=== PATIENT | female | born 1995 | race Caucasian/White ===

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

== ENCOUNTER 2018-04-24 13:18 | Outpatient (CLI) | END 2018-04-24 17:47 | disposition home or self-care (01) ==

== ENCOUNTER 2018-04-25 17:34 | Outpatient (CLI) | END 2018-04-25 20:40 | disposition home or self-care (01) ==

== ENCOUNTER 2018-06-04 18:13 | Inpatient (IN) | END 2018-06-06 15:05 | disposition home or self-care (01) | DRG 781 ==

== ENCOUNTER 2018-07-31 18:54 | Inpatient (IN) | END 2018-08-03 21:00 | disposition home or self-care (01) | DRG 788 ==

== ENCOUNTER 2019-04-30 16:46 | Emergency (ER) | payer OTHER ==
[~2019-04-30] VITALS: Ht 165.1 cm; Wt 68.2 kg
[~2019-04-30 16:46] MED LIST changes: +CEPH-443 PO; +PREN1TAB62 PO; -marajuana
[2019-04-30 17:01] VITALS: Ht 165.1 cm; Wt 68.2 kg
[2019-04-30] MEDS ORDERED: SOD CHLORIDE 0.9% 1,000 ML IV STA (17:21)
[2019-04-30 19:27] VITALS: BP 101/61; PULSE 69; RESP 20
== END 2019-04-30 19:28 | disposition home or self-care (01) ==
LOC: FTE 16:46
DX: O23.40 Unspecified infection of urinary tract in pregnancy, unspecified trimester (principal); R53.1 Weakness; Z3A.00 Weeks of gestation of pregnancy not specified
CPT/HCPCS: 80053; 81001; 81025; 85025; 87086; 93005; J7030; Z7502